=== PATIENT | male | born 1980 | race Caucasian/White ===

== ENCOUNTER → 2018-05-20 12:06 | Day surgery (SDC) | payer OTHER ==
[~2018-05-20 12:06] MED LIST: Buffered Lidocaine 1% SYRIN* 1 ML/SYRINGE INTRADERM ONE; Bupivacaine 0.25% SDV PF* 10 ML VIAL INJ ONE; Dexamethasone IV* 4 MG/ML 1 ML (4 MG) IV SLOW PU ONE; Dexamethasone IV* 4 MG/ML 1 ML (4 MG) ONE; Famotidine IV* 10 MG/ML 2 ML (20 mg) IV ONE; Famotidine IV* 10 MG/ML 2 ML (20 mg) ONE; Lactated Ringers 1000 ML Bag* 1,000 ML IV SCH; Midazolam* 1 MG/ML 2 ML VIAL (2 MG) ONE; Naloxone* 0.4 MG/ML 1 ML VIAL IV PRN; Propofol* 10 MG/ML 20 ML BTL ONE; ROPIVACAINE 5 MG/ML 30 ML BTL (0.5%) ONE; Remifentanil* 2 MG VIAL ONE; ceFAZolin 2 GM PREMIX in ORs 2 GM/50 ML BAG IVPB ONE; fentaNYL* 50 MCG/ML 2 ML VIAL (100 MCG VIAL) ONE
[2018-05-20 17:18] VITALS: BP 157/107
--- NOTE | 2018-05-20 22:52 | OP ---
DATE OF OPERATION: 05/20/18 - [facility] DATE OF : 76 SURGEON: Farrukh Sanchez MD OILER BANDER: FRED Guillen. An acute care nursing assistant was needed for the procedure to aide in positioning of the arm and retraction. ANESTHESIOLOGIST: Dr. Villatoro. ANESTHESIA: Peripheral nerve block with MAC. PRE-OP DIAGNOSIS: Full-thickness left distal biceps tendon rupture. POST-OP DIAGNOSIS: Full-thickness left distal biceps tendon rupture. OPERATIVE PROCEDURE: Left distal biceps tendon repair. Please note that the distal biceps tendon repair was substantially more difficult than a typical distal biceps tendon repair due to the patient's BMI of almost 50 and large girth of the arm. INDICATION: Ciro had the aforementioned distal biceps tendon rupture confirmed on MRI. We had talked about risks and benefits. He had wanted to proceed with surgery, understands the risk of posterior interosseous nerve injury as well as risk of re-rupture amongst the other surgical risks. ESTIMATED BLOOD LOSS: 20 mL. COMPLICATIONS: None. FINDINGS: See above and below. DESCRIPTION OF PROCEDURE: Ciro was seen in the preoperative holding area. The correct side, site, and procedure were identified. We came back to the operating room. The arm was prepped and draped in the usual fashion and a time- out was performed. He was positioned supine with the use of a hand table. I did have to use a larger tourniquet due to the large width of the arm. The arm was exsanguinated with the Esmarch and the tourniquet was inflated to 250 mmHg. A longitudinal incision in the typical trajectory of the distal biceps tendon, this was about 70 cm. Dissection was carried down through the subcutaneous tissue taking care to preserve the lateral antebrachial cutaneous nerve. The fascia was opened over the neurovascular bundle. The distal biceps tendon was noted to be retracted. The lacertus was still intact. I went ahead and released the lacertus. I then placed #2 FiberWire sutured just in the distal aspect of the tendon, used as a retraction suture. I free up the adhesions all around the distal biceps muscle and around the tendon until I had good mobility in the tendon. I then did my dissection down to the radial tuberosity. Usually, I do not have to ligate the radial recurrent artery, but due to the patient's girth I had to take some time and do some make extra dissection and ended up tying up the radial recurrent artery in its concomitant veins with 2-0 silk ties. Dissection was carried down until I had good visualization of the radial tuberosity and I could see the tendon remnant when I would fully supinate the arm. I then took the rongeur and I removed all of that tendon remnant, I also used the curette for this. This took some time, but ultimately at this point we had good visualization of the radial tuberosity. I then used the FiberLoop to whipstitch into the last 5 to 8 cm of the tendon using 6 to 7 passes through the tendon in the zigzag pattern. I then placed the guidewire in the radial tuberosity and confirmed the placement on C-arm fluoroscopy. I then measured my tendon and it measured about a 6-1/2, and so I selected a 7 mm drill and drilled unicortically over my guidewire. I then went ahead and cut the end of my FiberLoop into 2 strands. These were taken through the EndoButton in typical fashion. I then used the EndoButton insertion device to place EndoButton through my bone tunnel out the posterior radius. The button was then flipped. I confirmed the flipping of the button with the C- arm. I then pulled tension on 2 tails of the my suture to pull the tendon down into the bone. I used the free needle to pass the #2 FiberWire through the tendon and then tied off the #2 FiberWire at the level of the bone. The tendon had been pulled very nicely down into my unicortical bony tunnel and there was no gapping when I would extend the elbow. I confirmed everything again on the C -arm fluoroscopy. Lastly, I placed the interference screw in standard fashion. I got an excellent purchase and was very pleased with the placement of the interference screw. At this point, everything was looking good. I obtained hemostasis. I let down the tourniquet to make sure there was no bleeding, it was nice and dry. The subcutaneous tissue was reapproximated with 2-0 Vicryl. Skin was closed with 3- 0 Monocryl and Steri-Strips. A little bit more 0.25% plain Marcaine was infiltrated around the wound. The wound was dressed with 4x4s, sterile Webril, and then a long- arm splint with lateral buttress was applied with the elbow at 80 degrees of flexion. The patient was then woken up and taken to the recovery room in stable condition. [id number]/[facility] #: [id number] LEONIE
== END | disposition home or self-care (01) ==
LOC: OR 12:06
PROVIDERS: ATTEND Orthopaedic Surgery Hand Surgery
DX: S46.212A Strain of muscle, fascia and tendon of other parts of biceps, left arm, initial encounter (principal); I10 Essential (primary) hypertension; Z68.42 Body mass index [BMI] 45.0-49.9, adult; Z98.84 Bariatric surgery status; G89.18 Other acute postprocedural pain; X50.0XXA Overexertion from strenuous movement or load, initial encounter; Y92.69 Other specified industrial and construction area as the place of occurrence of the external cause; Y99.0 Civilian activity done for income or pay
CPT/HCPCS: 76000; C1713; J0690; J1100; J2250; J2704; J2795; J3010; J3490